=== PATIENT | male | born 1980 | race Caucasian/White ===

== ENCOUNTER 2018-10-01 08:29 | Emergency (ER) | payer OTHER ==
[2018-10-01] MEDS: METHOCARBAMOL 750 MG TAB PO (09:53)
[2018-10-01] MEDS: KETOROLAC 30 MG INJ IM (09:54)
[2018-10-01] MEDS: DEXAMETHASONE 10 MG/ML 1 ML INJ IM (09:54)
== END 2018-10-01 11:18 | disposition home or self-care (01) ==
LOC: FTE 08:29
DX: M54.5 Low back pain (principal)
CPT/HCPCS: 96372; 99284-25